=== PATIENT | female | born 1940 | race Caucasian/White ===

== ENCOUNTER 2019-11-26 18:21 | Emergency (ER) | payer MEDICARE, BC, OTHER ==
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
--- NOTE | 2019-11-26 20:34 | CT ---
Head CT Technique: Multiple axial sections through the brain were obtained. Intravenous contrast was not utilized. Comparison: No previous intracranial imaging is available. Findings: Ventricles along with basal cisterns and sulci over the convexities are mildly prominent. Diminished density is noted with thin periventricular white matter and subcortical white matter compatible with small vessel ischemic demyelination change. Similar findings are seen within portions of the basal ganglia. No evidence of intracranial hemorrhage. No midline shift or mass effect is seen. Bone window settings were reviewed which shows no acute calvarial abnormality. Mastoid sinuses show nothing acute. Minimal mucosal thickening is seen within portions of the ethmoid sinuses. Impression: 1. Minimal sinus findings which are believed to be incidental. 2. Senescent change as described above. 3. No acute intracranial abnormality is appreciated. Diagnostic code #2 This report was dictated in [place] Standard Time
[2019-11-26] MEDS ORDERED: OLANZapine 5 MG Tab PO ONE (21:39)
--- NOTE | 2019-11-27 07:15 | CR ---
Chest: Two views of the chest were obtained. Comparison: No prior chest imaging. Heart size is normal. Tortuous thoracic aorta is seen. Lungs are clear with no acute parenchymal change. Bony structures appear within normal limits for the patient's age. Impression: 1. Nothing acute is appreciated on two-view chest x-ray. Diagnostic code #1 This report was dictated in [place] Standard Time
== END 2019-11-26 22:00 | disposition home or self-care (01) ==
LOC: JD.ED 18:21
DX: R45.1 Restlessness and agitation (principal); I10 Essential (primary) hypertension; F32.9 Major depressive disorder, single episode, unspecified; Z87.891 Personal history of nicotine dependence; Z79.82 Long term (current) use of aspirin; Z79.899 Other long term (current) drug therapy
CPT/HCPCS: 36415; 70450; 71046; 80053; 80306; 81001; 85007; 85027; 87804; 93005; 99285; A9270; G0480; 93010; 99283

== ENCOUNTER 2022-11-19 21:43 | Emergency (ER) | payer MEDICARE, OTHER | END 2022-11-19 22:50 | disposition left against medical advice (07) | LOC: JD.ED 21:43 | DX: Z53.21 Procedure and treatment not carried out due to patient leaving prior to being seen by health care provider (principal) ==